=== PATIENT | male | born 1980 | race Caucasian/White ===

== ENCOUNTER → 2019-04-30 | Outpatient (CLI) | payer OTHER ==
--- NOTE | 2019-04-30 11:28 | RADIOLOGY REPORT (SQ) ---
EXAM DESCRIPTION: U/S ABDOMEN LIMITED W/O DOP COMPLETED DATE/TIME: 04/30/2019 10:20 am REASON FOR STUDY: EPIGASTRIC PAIN COMPARISON: None. TECHNIQUE: Dynamic and static grayscale images acquired of the abdomen and recorded on PACS. Additio nal selected color Doppler and spectral images recorded. LIMITATIONS: Limited visualization. Poor acoustical window FINDINGS: PANCREAS: Limited visualization. no masses seen LIVER: Normal size Echo texture normal. No focal masses. LIVER VASCULATURE: Normal directional flow of the main portal vein and hepatic veins. GALLBLADDER: No stones. Normal wall thickness. No pericholecystic fluid. ULTRASOUND-DETECTED HUGHES'S SIGN: Negative. INTRAHEPATIC DUCTS AND COMMON DUCT: CBD and intrahepatic ducts normal caliber. No filling defects. INFERIOR VENA CAVA: Normal flow. AORTA: No aneurysm. RIGHT KIDNEY: Normal size. Normal echogenicity. No solid or suspicious masses. No hydronephros is. No calcifications. PERITONEAL AND RIGHT PLEURAL SPACE: No ascites or effusions. OTHER: No other significant findings. IMPRESSION: NORMAL RIGHT UPPER QUADRANT ULTRASOUND VISUALIZED. TECHNICAL DOCUMENTATION: JOB ID: [id number] 2010 [employer]- All Rights Reserved Reading location - IP/workstation name: [email or web address]
== END ==
LOC: RAD 08:30
PROVIDERS: ATTEND Nurse Practitioner
DX: R10.11 Right upper quadrant pain (principal)
CPT/HCPCS: 76705

== ENCOUNTER 2019-05-27 10:41 | Emergency (ER) | payer OTHER ==
--- NOTE | 2019-05-27 10:57 | ER Document Report ---
ED Extremity Problem, Lower - General Chief Complaint: Ankle Injury Stated Complaint: RIGHT ANKLE PAIN Time Seen by Provider: 05/27/19 10:51 Primary Care Provider: OLIVE BAKER MD [ACTIVE PROVISIONAL STAFF] - Follow up as needed GABRIEL JOSEPH NP-C [Primary Care Provider] - Follow up as needed Mode of Arrival: Wheelchair Information source: Patient Notes: 39-year-old male presented to ED for complaint of pain to the right ankle and foot. He states he was stepping off of his boat when he stepped onto a 4 x 4 that was supposed to be secure and he twisted his ankle and foot about 230 yesterday afternoon. He states he felt and heard some pops but then the pain was not bad and he had been able to walk on it but this morning the pain is much worse and he is not able to walk on it. He has been using ice and elevation as well as ibuprofen for the pain. Alert oriented respirations regular nonlabored peaking in full sentences. TRAVEL OUTSIDE OF THE [place] IN LAST 30 DAYS: No - HPI Patient complains to provider of: Injury, Pain, Swelling Location: Ankle, Foot Occurred: Yesterday Where: Outdoors, Public place Onset/Duration: Gradual, Worse Quality of pain: Pressure Severity: Moderate Pain Level: 3 Context: Twisted Recent injury: Yes Associated symptoms: [place] a pop, Painful ambulation Exacerbated by: Hanging down, Movement, Walking Relieved by: Elevation, Ice, Rest - Related Data Allergies/Adverse Reactions: No Known Allergies Allergy (Unverified 09/28/14 00:37) Past Medical History - General Information source: Patient - Social History Smoking Status: Current Every Day Smoker Cigarette use (# per day): Yes - Pack per day Smoking Education Provided: Yes - 4 minutes Frequency of alcohol use: Social Drug Abuse: None Family History: Reviewed & Not Pertinent Patient has suicidal ideation: No Patient has homicidal ideation: No - Past Medical History Cardiac Medical History: Reports: None Pulmonary Medical History: Reports: None EENT Medical History: Reports: None Neurological Medical History: Reports: None Endocrine Medical History: Reports: None Renal/ Medical History: Reports: None Malignancy Medical History: Reports None GI Medical History: Reports: Hx Gastroesophageal Reflux Disease Musculoskeletal Medical History: Reports Hx Musculoskeletal Trauma Skin Medical History: Reports None Psychiatric Medical History: Reports: None Traumatic Medical History: Reports: None Infectious Medical History: Reports: None Surgical Hx: Negative Past Surgical History: Reports: None Review of Systems - Review of Systems Constitutional: No symptoms reported EENT: No symptoms reported Cardiovascular: No symptoms reported Respiratory: No symptoms reported Gastrointestinal: No symptoms reported Genitourinary: No symptoms reported Male Genitourinary: No symptoms reported Musculoskeletal: Ankle swelling - Painful decreased range of motion due to pain Skin: No symptoms reported Hematologic/Lymphatic: No symptoms reported Neurological/Psychological: No symptoms reported -: Yes All other systems reviewed and negative Physical Exam - Vital signs Vitals: Temp Pulse Resp BP Pulse Ox 97.8 F 74 18 147/80 H 98 05/27/19 10:45 05/27/19 10:45 05/27/19 10:45 05/27/19 10:45 05/27/19 10:45 Interpretation: Normal - General General appearance: Appears well, Alert - HEENT Head: Normocephalic, Atraumatic Eyes: Normal Pupils: PERRL - Respiratory Respiratory status: No respiratory distress Chest status: Nontender Breath sounds: Normal Chest palpation: Normal - Cardiovascular Rhythm: Regular Heart sounds: Normal auscultation Murmur: No - Abdominal Inspection: Normal Distension: No distension Bowel sounds: Normal Tenderness: Nontender Organomegaly: No organomegaly - Back Back: Normal, Nontender - Extremities General upper extremity: Normal inspection, Nontender, Normal color, Normal ROM, Normal temperature General lower extremity: Normal temperature. No: Velma's sign Ankle: Tender, Ecchymosis, Edema, Limited ROM - To pain, Unable to bear weight. No: Abrasion, Deformity, Instability, Laceration, Positive Velazco's test Foot: Tender, Ecchymosis, Edema, No evidence of FB. No: Abrasion, Deformity, Instability, Laceration, Metatarsal compress. pain, Nail injury, Navicular tend erness, Puncture wound, Tender 5th metatarsal, Unable to bear weight - Neurological Neuro grossly intact: Yes Cognition: Normal Orientation: AAOx4 White Coma Scale Eye Opening: Spontaneous White Coma Scale Verbal: Oriented Ashley Coma Scale Motor: Obeys Commands White Coma Scale Total: 15 Speech: Normal Motor strength normal: LUE, RUE, LLE, RLE Sensory: Normal - Psychological Associated symptoms: Normal affect, Normal mood - Skin Skin Temperature: Warm Skin Moisture: Dry Skin Color: Normal Location of irregularity: Extremities - Right ankle Irregularity with: Swelling, Tenderness Course - Re-evaluation Re-evalutation: 05/27/19 15:16 The patient is nontoxic appearing with stable vitals. They are afebrile. Ankle exam shows no deformities with no obvious ligament instability. There is a normal pulse and sensation distally. There is no redness or signs of infection. X-rays show no acute fracture per the radiologist. Patient will be placed in an Robert wrap for comfort. Crutches will be offered and given if requested. Patient will be instructed to follow-up with not better in 1 week, sooner for increasing pain, fever, redness, numbness, tingling, weakness, any further concerns. Patient will be instructed to rest, ice, elevate their ankle. - Vital Signs Vital signs: Temp Pulse Resp BP Pulse Ox 97.4 F 64 18 140/82 H 100 05/27/19 11:40 05/27/19 11:40 05/27/19 11:40 05/27/19 11:40 05/27/19 11:40 - Diagnostic Test Radiology reviewed: Image reviewed, Reports reviewed Procedures - Immobilization Right Ankle Time completed: 11:41 Pre-Proc Neuro Vasc Exam: Normal Immobilizer type: Robert wrap, Ankle stirrup, Crutches Performed by: Provider Post-Proc Neuro Vasc Exam: Normal Alignment checked and good: Yes Discharge - Discharge Clinical Impression: Right ankle sprain Qualifiers: Encounter type: initial encounter Involved ligament of ankle: unspecified ligament Qualified Code(s): S93.401A - Sprain of unspecified ligament of right ankle, initial encounter Condition: Stable Disposition: HOME, SELF-CARE Additional Instructions: SPRAINED ANKLE: Your sprained ankle results from stretching or tearing of the ligaments which support the ankle. This usually results from twisting the foot inward and under. The ligaments will require time and protection in order to heal properly. Many ankle sprains are quite disabling, and should be taken seriously. The usual treatment for an ankle sprain is cold packs; protection with tape, splints, or wraps; elevation; and staying off the ankle for at least a day. As the ankle improves, you can walk IF it's not painful to bear weight. Sports are best postponed until healing is complete. More serious sprains usually require strengthening exercises after early healing. Your physician has assessed the seriousness of the ligament injury to your ankle. However, the treatment may change, depending on how your ankle progresses. If further exams were recommended, it is important that you follow through. Call the doctor if your foot becomes numb, painful, or severely swollen. ROBERT WRAP: A compression dressing (robert wrap) has been placed. This helps hold the area still. It limits swelling and internal bleeding. The wrap should be comfortably snug -- not tight. You should feel a sense of pressure, but not severe pain under the wrap. Unless the physician tells you otherwise, you can adjust the wrap for comfort. If the wrap causes symptoms suggesting it's too tight -- uncomfortable pressure, swelling or discoloration beyond the wrap, numbness, or severe pain -- you must loosen the wrap. If these symptoms don't resolve promptly, return for re-evaluation. ANKLE STIRRUP SPLINT: You are to use an ankle brace called a stirrup splint. This type of brace allows you to place greater stresses on the ankle without risk of re-injury, and is often used for more severe ankle injuries such as avulsion fractures and ligament ruptures. The splint can be worn over a sock or tape. For proper support, wear the splint with a shoe over it. It's important that the splint fit properly. Adjust the heel tension, if needed. If your splint has air bladders, peel back the bottom of each air bladder, then move the Velcro attachment of the heel strap up or down. Air bladder pressure can be adjusted by pulling up the valve at the top, threading the air tube down into the main bladder, then blowing air into the bladder or squeezing it out. The two sides of the stirrup can be moved forward or back on your ankle by changing the attachment of the main straps. If you are unable to use the ankle comfortably in the splint, return for re-evaluation. USE OF CRUTCHES: The doctor has recommended that you not bear weight at this time. You will need to use crutches. Adjust the crutches so the tops come to about two inches under the armpit while you are standing upright. Use your hands -- not your armpits -- to support your weight. To get into a chair, support yourself with one crutch on the injured side. Hold the chair with the other hand, then lower yourself while putting all your weight on the good leg. Going up stairs is `good leg up, step up, then bring up crutches and bad leg.' Down stairs is `bad leg and crutches down, then bring good leg down.' If you develop numbness or swelling in an arm or hand, you are using the crutches incorrectly. Return if you are having any problems with the crutches. ICE & ELEVATION: Apply ice packs frequently against the painful area. Many different schedu les are recommended, such as "20 minutes on, 20 minutes off" or "one hour ice, two hours rest." If you need to work, you may need to go longer between ice treatments. You should plan to have the area ice packed AT LEAST one-fourth of the time. The ice should be applied over the wrap, tape, or splint, or over a layer of cloth -- not directly against the skin. Some ice bags have a built-in cloth and can be put directly on the skin. Your injured part should be elevated as much as possible over the next 48 hours. Try to keep the injury above the level of the heart. Avoid use of the i njured area. Elevation and rest will decrease the swelling. USE OF [id number] IBUPROFEN: Ibuprofen (Advil, Nuprin, Medipren, Motrin IB) is a medication for fever and pain control. In addition, it has anti- inflammatory effects which may be beneficial, especially in the treatment of injuries. It's best to take ibuprofen with food. Persons with ulcer disease or allergy to aspirin should notify their physician of this before taking ibuprofen. Ibuprofen can be given every four to six hours, for a total of four doses daily. Age Pain or fever dose Antiinflammatory dose 6-8 yr 200 mg (1 tab) 200 mg (1 tab) 9-11 yr 200 mg (1 tab) 200-400 mg (1-2 tab) 11-14 yr 200-400 mg (1-2 tab) 400 mg (2 tab) 15-adult 400 mg (2 tab) 600 mg (3 tab) FOLLOW-UP CARE: If you have been referred to a physician for follow-up care, call the [facility] office for an appointment as you were instructed or within the next two days. If you experience worsening or a significant change in your symptoms, notify the physician immediately or return to the Emergency Department at any time for re-evaluation. Forms: Elevated Blood Pressure, Smoking Cessation Education, Return to Work Referrals: GABRIEL JOSEPH, [employer] [Primary Care Provider] - Follow up as needed OLIVE BAKER MD [ACTIVE PROVISIONAL STAFF] - Follow up as needed
--- NOTE | 2019-05-27 11:16 | RADIOLOGY REPORT (SQ) ---
EXAM DESCRIPTION: FOOT RIGHT COMPLETE; ANKLE RIGHT COMPLETE IMAGES COMPLETED DATE/TIME: 05/27/2019 11:07 am REASON FOR STUDY: twisted pain,pop injury COMPARISON: None. FINDINGS: Three views right ankle: Normal. Three views right foot: Normal. TECHNICAL DOCUMENTATION: JOB ID: [id number] Reading location - IP/workstation name: [email or web address]
--- NOTE | 2019-05-27 11:16 | RADIOLOGY REPORT (SQ) ---
EXAM DESCRIPTION: FOOT RIGHT COMPLETE; ANKLE RIGHT COMPLETE IMAGES COMPLETED DATE/TIME: 05/27/2019 11:07 am REASON FOR STUDY: twisted pain,pop injury COMPARISON: None. FINDINGS: Three views right ankle: Normal. Three views right foot: Normal. TECHNICAL DOCUMENTATION: JOB ID: [id number] Reading location - IP/workstation name: [email or web address]
[2019-05-27 12:53] VITALS: BP 140/82
== END 2019-05-27 11:40 | disposition home or self-care (01) ==
LOC: ER 10:41
DX: S93.401A Sprain of unspecified ligament of right ankle, initial encounter (principal); X50.1XXA Overexertion from prolonged static or awkward postures, initial encounter; F17.210 Nicotine dependence, cigarettes, uncomplicated
CPT/HCPCS: 99283